=== PATIENT | male | born 1995 | race Caucasian/White ===

== ENCOUNTER 2016-10-10 10:19 | Emergency (ER) | payer OTHER ==
[~2016-10-10] VITALS: Ht 188 cm; Wt 91.1 kg
[2016-10-10 10:23] VITALS: TEMP 36.7; Ht 188 cm; Wt 91.1 kg
[2016-10-10] MEDS ORDERED: CEFTRIAXONE SOD 350MG/ML 1 GM VIAL IM ONE (10:45)
[2016-10-10] MEDS ORDERED: SULFAMETHOXAZOLE/TRIMETHOPRIM DS 800/160MG TAB PO ONE (10:45)
--- NOTE | 2016-10-10 10:47 | EMERGENCY ROOM VISIT NOTE ---
History Report prepared by Maryellen: Kylah Verma Under the Supervision of: Dr. Miranda Li M.D. First contact with patient: 10:30 Chief Complaint: BITE Stated Complaint: BUG BITE SEEMS TO BE INFECTED History of Present Illness The patient is a 20 year old male who presents to the Emergency Room with complaints of a persistent, worsening infected bug bite to his right upper extremity that began several days ago. He currently rates his discomfort as a 5 /10 in severity. The patient states that he noticed an insect bite to his right upper arm that was the size of a needle prick. He states that he scratched the area, but states that he has noticed pain, swelling and erythema extending down to her elbow. The patient states that he has a history of previous staph and MRSA infections. He denies any drainage from the area. The patient reports a subjective fever. He reports a history of asthma, but denies any history of diabetes. The patient denies being on any daily medications. Source of History: patient Onset: several days ago Position: arm (right) Symptom Intensity: 5/10 Quality: other (infected bug bite) Timing: worsening, other (persistent) Associated Symptoms: + fevers (subjective) Note: Associated Symptoms: swelling, erythema, and pain down to right elbow Review of Systems See HPI for pertinent positives & negatives. A total of 10 systems reviewed and were otherwise negative. Past Medical & Surgical Medical Problems: (1) Asthma (2) MRSA infection (3) Staph infection Family History Patient reports no known family medical history. Social History Smoking Status: Never Smoker Smokeless Tobacco Use: No Alcohol Use: occasionally Drug Use: none Marital Status: single Housing Status: lives with roommate Occupation Status: [employer] student Current/Historical Medications Scheduled Cephalexin Monohydrate (Keflex), 500 MG PO QID Sulfa/Trimethoprim (Bactrim Ds 800MG/160MG), 1 TAB PO BID Allergies Coded Allergies: No Known Allergies (Unverified , 10/10/16) Physical Exam Vital Signs Date Time Temp Pulse Resp B/P (MAP) Pulse Ox O2 Delivery O2 Flow Rate FiO2 10/10/16 11:17 85 18 141/96 100 Room Air 10/10/16 10:23 36.7 84 16 136/78 98 Room Air Physical Exam Vital signs reviewed. General: Well-appearing male, in no significant distress. HEENT: No scleral icterus, PERRLA, neck supple. Atraumatic. Cardiovascular: Regular rate and rhythm, no extra sounds. Pulmonary: Clear to auscultation bilaterally, normal work of breathing. Abdomen: Soft, nontender, nondistended, positive bowel sounds. Musculoskeletal: Atraumatic, no peripheral edema. Neurologic: Patient awake alert and oriented x 3 Skin: Area about 10 cm to the right proximal arm with an area of central induration, no fluctuance. The area is erythematous, warm, no streaking, mild swelling noted. Medical Decision & Procedures Medications Administered Medications (Trade) Dose Ordered Sig/Izzy Route Start Time Stop Time Status Last Admin Dose Admin Ceftriaxone Sodium (Rocephin Im) 1,000 mg NOW ONCE IM 10/10/16 10:45 10/10/16 10:46 DC 10/10/16 10:57 1,000 MG Trimethoprim/ Sulfamethoxazole (Septra Ds 800/ 160MG Tab) 1 tab NOW ONCE PO 10/10/16 10:45 10/10/16 10:46 DC 10/10/16 10:56 1 TAB ED Course 1034: Past medical records reviewed. The patient was evaluated in room A4B. A complete history and physical examination was performed. I discussed the treatment plan with him and he verbalized complete understanding and agreement. He is ready to go home once he receives his medications. 1045: Ordered Trimethoprim/Sulfamethoxazole 1 tab PO, Rocephin Inj 1000 mg IM. Medical Decision Differential diagnosis: Etiologies such as cellulitis, abscess, MRSA infection, DVT, necrotizing fasciitis, dermatitis, drug eruption, as well as others were entertained. This patient was evaluated and appeared to be in no significant distress. Physical examination is consistent with a right upper extremity cellulitis. The patient likely sustained an insect bite that he admits to scratching. He was given ceftriaxone 1 g IM, Bactrim DS 1 tab by mouth. He will continue a 1 week course of both Proximal and Bactrim. He'll use Tylenol and ibuprofen as needed. He will return to the ER for worsening of symptoms, increased area of redness or any concerns. He was advised to see [facility] within 48 hours for reevaluation. Medication Reconcilliation Current Medication List: was personally reviewed by me Blood Pressure Screening Patient's blood pressure: Normal blood pressure Impression Primary Impression: Cellulitis Scribe Attestation The scribe's documentation has been prepared under my direction and personally reviewed by me in its entirety. I confirm that the note above accurately reflects all work, treatment, procedures, and medical decision making performed by me. Departure Information Dispostion Home / Self-Care Prescriptions Sulfa/Trimethoprim (Bactrim Ds 800MG/160MG) Tab 1 TAB PO BID, #14 TAB Prov: Miranda Li M.D. 10/10/16 Cephalexin Monohydrate (Keflex) 500 Mg Cap 500 MG PO QID, #28 CAP Prov: Miranda Li M.D. 10/10/16 Referrals [facility] Forms HOME CARE DOCUMENTATION FORM, IMPORTANT VISIT INFORMATION Patient Instructions My [facility] Additional Instructions Diagnosis: Right upper extremity cellulitis Keflex 500 mg 4 times a day for 7 days. Start tomorrow. Bactrim DS 1 tablet twice daily for 7 days, start this evening. Tylenol 650 mg every 6 hours as needed for pain or fever. Ibuprofen 600 mg every 6 hours as needed for pain or fever with food. Drink plenty of clear fluids. Follow-up with [facility] in 48 hours for reevaluation. Return to the ER if the area of redness becomes larger, fever, red streaking occurs or any medical concerns. Problem Qualifiers Primary Impression: Cellulitis Site of cellulitis: extremity Site of cellulitis of extremity: upper extremity Laterality: right Qualified Codes: L03.113 - Cellulitis of right upper limb
[2016-10-10] MEDS ORDERED: SULF800T23 PO (11:09)
[2016-10-10] MEDS ORDERED: CEPH500C PO (11:09)
[2016-10-10 11:17] VITALS: BP 141/96; PULSE 85; O2SAT 100
== END 2016-10-10 11:19 | disposition home or self-care (01) ==
LOC: C.EDB 10:21 → C.EDA 11:19
DX: L03.113 Cellulitis of right upper limb (principal); J45.909 Unspecified asthma, uncomplicated; Z86.14 Personal history of Methicillin resistant Staphylococcus aureus infection

== ENCOUNTER 2016-10-12 11:12 | Emergency (ER) | payer OTHER ==
[~2016-10-12] VITALS: Ht 190.5 cm; Wt 90.9 kg
[~2016-10-12 11:12] MED LIST: CEPH500C PO; SULF800T23 PO
[2016-10-12 11:16] VITALS: TEMP 36.7; Ht 190.5 cm; Wt 90.9 kg
[2016-10-12] MEDS ORDERED: IBUPROFEN 600 MG TAB PO STA (11:35)
[2016-10-12] MEDS ORDERED: SODIUM CHLORIDE 0.9% 1000ML 1,000 ML IV STA (11:35)
[2016-10-12] MEDS ORDERED: VANCOMYCIN 1GM/270ML NSS IV STA (11:35)
--- NOTE | 2016-10-12 11:50 | EMERGENCY ROOM VISIT NOTE ---
History First contact with patient: 11:21 Chief Complaint: BITE Stated Complaint: SEEN 10/10 INFECTION- BUG BITE- SPREADING RASH History of Present Illness The patient is a 20 year old male who presents to the Emergency Room with complaints of skin infection HPI: Patient has had developing skin infection over RUE dorsal extremity since . Seen on 10/10, given Keflex/Bactrim. Has complied w/ course of trx x 48 hrs w/o improvement of redness. Now expanding. Mild redness and pain, indurated in nature. Source of History: patient Onset: 10/09 Position: arm (right) Symptom Intensity: moderate Quality: ache Timing: intermittent Modifying Factors (Worsening): exertion, movement Modifying Factors (Relieving): rest Associated Symptoms: + fevers, No sorethroat, No cough, No chest pain, No SOB, No nausea, No vomiting, No abdominal pain, No back pain, No diarrhea, No weakness, No numbness Review of Systems See HPI for pertinent positives and negatives. A total of ten systems were reviewed and were otherwise negative. Past Medical/Surgical History Medical Problems: (1) Asthma (2) MRSA infection (3) Staph infection Family History Patient reports no known family medical history. Social History Smoking Status: Never Smoker Alcohol Use: occasionally Drug Use: none Marital Status: single Housing Status: lives with roommate Occupation Status: [employer] student Current/Historical Medications Scheduled Cephalexin Monohydrate (Keflex), 500 MG PO QID Sulfa/Trimethoprim (Bactrim Ds 800MG/160MG), 1 TAB PO BID Physical Exam Vital Signs Date Time Temp Pulse Resp B/P (MAP) Pulse Ox O2 Delivery O2 Flow Rate FiO2 10/12/16 14:10 57 16 120/69 98 Room Air 10/12/16 13:00 58 16 99 Room Air 10/12/16 11:16 36.7 91 18 149/93 99 Room Air Physical Exam See Below General Appearance: no apparent distress Head: normocephalic Eyes: normal inspection, PERRL Neck: supple, no adenopathy Respiratory/Chest: chest non-tender, lungs clear, normal breath sounds Cardiovascular: regular rate, rhythm Abdomen / GI: non tender, soft Extremities: + pertinent finding (Patient w/ 5 cm of erythema, mild induration, central area of escar 2mm, no purulence or fluctuance, NV intact distally w/ MUR nerves intact, cap refill WNL; mild pain w/ extension/flexion at elbow w/o redness or swelling) Medical Decision & Procedures Laboratory Results 10/12/16 11:50 Red Blood Count 4.91, Mean Corpuscular Volume 87.6, Mean Corpuscular Hemoglobin 30.1, Mean Corpuscular Hemoglobin Concent 34.4, Mean Platelet Volume 11.2, Neutrophils (%) (Auto) 80.2, Lymphocytes (%) (Auto) 10.1, Monocytes (%) (Auto) 6.4, Eosinophils (%) (Auto) 2.7, Basophils (%) (Auto) 0.4, Neutrophils # (Auto) 8.46, Lymphocytes # (Auto) 1.06, Monocytes # (Auto) 0.67, Eosinophils # (Auto) 0.28, Basophils # (Auto) 0.04 10/12/16 11:50 Test 10/12/16 11:50 10/12/16 12:02 10/12/16 12:07 White Blood Count 10.53 K/uL (4.8-10.8) Red Blood Count 4.91 M/uL (4.7-6.1) Hemoglobin 14.8 g/dL (14.0-18.0) Hematocrit 43.0 % (42-52) Mean Corpuscular Volume 87.6 fL (80-100) Mean Corpuscular Hemoglobin 30.1 pg (25-34) Mean Corpuscular Hemoglobin Concent 34.4 g/dl (32-36) Platelet Count 249 K/uL (130-400) Mean Platelet Volume 11.2 fL (7.4-10.4) Neutrophils (%) (Auto) 80.2 % Lymphocytes (%) (Auto) 10.1 % Monocytes (%) (Auto) 6.4 % Eosinophils (%) (Auto) 2.7 % Basophils (%) (Auto) 0.4 % Neutrophils # (Auto) 8.46 K/uL (1.4-6.5) Lymphocytes # (Auto) 1.06 K/uL (1.2-3.4) Monocytes # (Auto) 0.67 K/uL (0.11-0.59) Eosinophils # (Auto) 0.28 K/uL (0-0.5) Basophils # (Auto) 0.04 K/uL (0-0.2) RDW Standard Deviation 38.6 fL (36.4-46.3) RDW Coefficient of Variation 12.1 % (11.5-14.5) Immature Granulocyte % (Auto) 0.2 % Immature Granulocyte # (Auto) 0.02 K/uL (0.00-0.02) Anion Gap 5.0 mmol/L (3-11) Est Creatinine Clear Calc Drug Dose 127.0 ml/min Estimated GFR () 110.6 Estimated GFR (Non- 95.5 BUN/Creatinine Ratio 8.9 (10-20) Calcium Level 10.0 mg/dl (8.5-10.1) Bedside Lactic Acid Venous 1.02 mmol/L (0.90-1.70) Venous Blood pH 7.34 (7.36-7.41) Venous Blood Partial Pressure CO2 59 mmHg (38.0-50.0) Venous Blood Partial Pressure O2 23 mmHg Venous Blood HCO3 31 mmol/L Venous Blood Oxygen Saturation < 60.0 % Venous Blood Base Excess 4.1 mmol/L Medications Administered Medications (Trade) Dose Ordered Sig/Izzy Route Start Time Stop Time Status Last Admin Dose Admin Ibuprofen (Motrin Tab) 600 mg NOW STAT PO 10/12/16 11:35 10/12/16 11:42 DC 10/12/16 12:00 600 MG Sodium Chloride 1,000 ml @ 999 mls/hr Q1H1M STAT IV 10/12/16 11:35 10/12/16 12:35 DC 10/12/16 12:07 999 MLS/HR Vancomycin HCl (Vancomycin 1gm/ 270ml Nss) 1 gm NOW STAT IV 10/12/16 11:35 10/12/16 11:42 DC 10/12/16 12:07 1 GM Medical Decision Differential diagnosis included cellulitis, abscess, complicated cellulitis, allergic reaction Patient is a 20-year-old 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 Patient does state that the redness has improved her radius had some pain in his right upper extremity. Initially was concerned that he had some expanding redness labs were ordered and patient was given empiric IV Vanco. However, upon further evaluation patient's redness is actually decreased. Patient has been taking his at home and monitor for 48 hours. Patient is feeling well and after review of the laboratory work she had a normal white count and lactate is not septic with normal vital signs. The patient was told to return to the ER for further evaluation of his skin infection with the hopes that this will continue to improve. Patient is comfortable with this plan of care. Patient was performed, discharge, return precautions. Patient agreed with plan of care, questions were answered. Patient was discharged home. Medication Reconcilliation Current Medication List: was personally reviewed by me Blood Pressure Screening Patient's blood pressure: Normal blood pressure Impression Primary Impression: Cellulitis Additional Impression: Insect bites Departure Information Dispostion Home / Self-Care Condition GOOD Referrals [facility] (PCP) Patient Instructions My [facility] Additional Instructions Please return to the ER for further evaluation of her skin infection tomorrow. He may continue to do warm compresses to the area. Please continue taking your prescriptions as prescribed. Please return to emergency department if worsening fever or swelling or redness. He may use Motrin 800 mg every 6 hours or Tylenol 1 g/1000 mg every 6 hours as needed for pain. Problem Qualifiers
[2016-10-12 12:13] LABS: BASO % 0.4 %; BASO ABS # 0.04 K/uL (0-0.2); COMPLETE YES; EOS % 2.7 %; IG% 0.2 %; LYMPH % 10.1 %; LYMPH ABS # 1.06 K/uL (1.2-3.4); MEAN CELL VOLUME 87.6 fL (80-100); MEAN CORPUSCULAR HEMOGLOBIN 30.1 pg (25-34); MEAN CORPUSCULAR HGB CONC 34.4 g/dl (32-36); MEAN PLATELET VOLUME 11.2 fL (7.4-10.4); MONO % 6.4 %; NEUT % 80.2 %; PLATELET COUNT 249 K/uL (130-400); RED BLOOD COUNT 4.91 M/uL (4.7-6.1); WHITE BLOOD COUNT 10.53 K/uL (4.8-10.8)
[2016-10-12 12:19] LABS: VEN BLOOD GAS BASE EXCESS 4.1 mmol/L; VENOUS BLOOD GAS PCO2 59 mmHg (38.0-50.0); VENOUS BLOOD GAS PO2 23 mmHg
[2016-10-12 12:21] LABS: VEN BLD GAS O2 SATURATION < 60.0 %
[2016-10-12 12:30] LABS: BUN/CREATININE RATIO 8.9 (10-20); CREATININE 1.1 mg/dl (0.60-1.40); POTASSIUM 4.3 mmol/L (3.5-5.1)
[2016-10-12 14:10] VITALS: BP 120/69; PULSE 57; O2SAT 98
== END 2016-10-12 14:43 | disposition home or self-care (01) ==
LOC: C.EDB 11:13 → C.EDA 14:43
DX: L03.113 Cellulitis of right upper limb (principal); S40.861D Insect bite (nonvenomous) of right upper arm, subsequent encounter; W57.XXXD Bitten or stung by nonvenomous insect and other nonvenomous arthropods, subsequent encounter